=== PATIENT | male | born 1995 | race Caucasian/White ===

== ENCOUNTER 2019-05-09 01:01 | Inpatient (IN) | payer MEDICAID ==
[~2019-05-09] VITALS: Ht 170.2 cm; Wt 72.6 kg
[2019-05-09] VITALS (10 sets, daily range): BP systolic 99–121; BP diastolic 39–72
[2019-05-09] MEDS ORDERED: KETOROLAC 30MG/ML VIAL IV STA (02:04)
[2019-05-09] MEDS ORDERED: ONDANSETRON HCL 4MG/2ML INJ IV STA (02:04)
[2019-05-09] MEDS ORDERED: SODIUM CHLORIDE 0.9% 1,000 ML IV ONE ×2 (02:04→04:05)
[2019-05-09 02:22] LABS: HEMATOCRIT. 47.3 % (42.0-52.0); HEMOGLOBIN. 16.5 g/dL (14.0-18.0); MEAN CORPUSCULAR HEMOGLOBIN 31.7 pg (28.0-32.0); MEAN CORPUSCULAR VOLUME 90.8 fL (80.0-94.0); MEAN PLATELET VOLUME 7.9 fl (7.4-10.4); PLATELET 365 x1000/uL (130-400); RED BLOOD CELL COUNT 5.21 mill/uL (4.7-6.1); RED CELL DISTRIBUTION WIDTH 12.9 % (11.6-14.6)
[2019-05-09 02:28] LABS: CHLORIDE 102 mEq/L (98-107)
[2019-05-09 03:44] LABS: PLATELET ESTIMATE NORMAL
[2019-05-09] MEDS ORDERED: LEVOFLOXACIN 750MG PREMIX 150 ML IV ONE (05:45)
[2019-05-09] MEDS ORDERED: METRONIDAZOLE 500 MG PREMIX 100 ML IV ONE (05:45)
[2019-05-09] MEDS: SODIUM CHLORIDE 0.9% 1,000 ML IV SCH ×3 (06:10→22:05)
[2019-05-09] MEDS ORDERED: ONDANSETRON HCL 4MG/2ML INJ IV PRN (06:15)
[2019-05-09] MEDS ORDERED: ACETAMINOPHEN 325MG TABLET PO PRN (06:15)
[2019-05-09] MEDS ORDERED: DIPHENHYDRAMINE 50MG/ML VIAL IV PRN (06:15)
[2019-05-09] MEDS ORDERED: IOHEXOL-300 100 ML BOTTLE ONE (06:57)
[2019-05-09] MEDS ORDERED: PIPERACILLIN/TAZ 3.375G PREMIX 50 ML IV SCH ×2 (07:45→10:00)
[2019-05-09] MEDS: KETOROLAC 15MG/ML VIAL IV PRN ×3 (09:32→22:42)
[2019-05-09] MEDS: FAMOTIDINE 20MG/2ML VIAL IV SCH ×2 (09:33→22:06)
[2019-05-09] MEDS ORDERED: VANCOMYCIN HCL 1 GM/VIAL PO SCH (12:00)
[2019-05-09] MEDS: METRONIDAZOLE 500 MG PREMIX 100 ML IV SCH ×2 (13:21→22:00)
[2019-05-09 16:17] LABS: CHLORIDE 110 mEq/L (98-107)
[2019-05-09 16:45] LABS: HEPATITIS B SURFACE ANTIGEN NEGATIVE
[2019-05-09 17:15] LABS: HEPATITIS A AB IGM NEGATIVE (NEGATIVE)
[2019-05-10] VITALS (9 sets, daily range): BP systolic 87–122; BP diastolic 40–81
[2019-05-10] MEDS: METRONIDAZOLE 500 MG PREMIX 100 ML IV SCH ×3 (00:04→13:27)
[2019-05-10] MEDS: SODIUM CHLORIDE 0.9% 1,000 ML IV SCH (05:41)
[2019-05-10 06:49] LABS: BASOPHILS % 0.7 % (0.0-2.0); EOSINOPHILS % 0.1 % (0.0-5.0); HEMATOCRIT. 40.9 % (42.0-52.0); HEMOGLOBIN. 13.9 g/dL (14.0-18.0); LYMPHOCYTES % 19.8 % (20.0-50.0); MEAN CORPUSCULAR HEMOGLOBIN 31.5 pg (28.0-32.0); MEAN CORPUSCULAR VOLUME 92.7 fL (80.0-94.0); MEAN PLATELET VOLUME 7.7 fl (7.4-10.4); MONOCYTES % 7.8 % (2.0-8.0); NEUTROPHILS % 71.6 % (40.0-76.0); PLATELET 263 x1000/uL (130-400); RED BLOOD CELL COUNT 4.41 mill/uL (4.7-6.1); RED CELL DISTRIBUTION WIDTH 13.2 % (11.6-14.6)
[2019-05-10 06:58] LABS: CHLORIDE 113 mEq/L (98-107)
[2019-05-10] MEDS: FAMOTIDINE 20MG/2ML VIAL IV SCH (09:19)
[2019-05-10] MEDS ORDERED: METRONIDAZOLE 500 MG PREMIX 100 ML IV SCH (22:00)
[2019-05-11] MEDS ORDERED: METRONIDAZOLE 500MG TABLET PO SCH (06:00)
[2019-05-14 04:13] LABS: OVA & PARASITE EXAM Final report (.)
== END 2019-05-10 17:35 | disposition home or self-care (01) | DRG 720 ==
LOC: ER 01:01 → 5EST 05:55 → EDBEDREQTM 05:58 → EDBEDREQ 05:58 → ENRESERV 07:03 → 5EST 11:49
PROVIDERS: ADMIT Internal Medicine; ATTEND Internal Medicine
DX: A41.9 Sepsis, unspecified organism (principal); A09 Infectious gastroenteritis and colitis, unspecified; Z83.3 Family history of diabetes mellitus
CPT/HCPCS: 36415; 74177; 80048; 82270; 83605; 86705; 86709; 86803; 87015; 87045; 87177; 87209; 87340; 87427; 87449; 87493; 89055; 96361; 96365; 96368; 96375; 99291; J1200; J1885; J1956; J2405; J2543; J3490; J7030; J7050; Q9967